=== PATIENT | female | born 1975 | race Caucasian/White ===

== ENCOUNTER → 2017-07-27 | Outpatient (CLI) | payer SELFPAY | LOC: LAB.O 10:51 | PROVIDERS: ATTEND Nurse Practitioner Family | DX: R11.2 Nausea with vomiting, unspecified (principal) ==

== ENCOUNTER → 2017-11-23 | Outpatient (CLI) | payer OTHER | LOC: LAB.O 11:22 | PROVIDERS: ATTEND Nurse Practitioner Family | DX: R07.89 Other chest pain (principal) ==

== ENCOUNTER 2020-04-04 23:31 | Observation (INO) | payer SELFPAY ==
[2020-04-04] MEDS ORDERED: ONDANSETRON INJ 4 MG/2 ML VIAL IV ONE (23:50)
--- NOTE | 2020-04-04 23:54 | ED.PDOC ---
History of Present Illness - General Stated Complaint: "Vertigo", N/V, right ear pressure Time Seen by Provider: 04/04/20 23:50 Source: patient Exam Limitations: no limitations - History of Present Illness Initial Comments: Pt says she's had mild pressure in her right ear for the past several day. She was seen in the clinic and was told to use flonase. Pt has h/o vertigo, but not this severe. Pt denies cough, sore throat, F/C. Pt denies GARCIA. Pt says she was lying down tonight when her vertigo suddenly worsened. Vertigo is definitely positional, increased when turning head and lying flat. Pt says she has slight left chest discomfort, but fairly sure it's related to vomiting. Timing/Duration: other - Past few days, worsened today Severity: moderate, severe Improving Factors: immobilization Worsening Factors: movement Associated Symptoms: nausea/vomiting Allergies/Adverse Reactions: Allergies Ondansetron [From Zofran] Allergy (Verified 11/17/12 07:11) IV form only Home Medications: Ambulatory Orders RX: Lisinopril 10 mg PO 04/05/20 Wellbutrin XL 50 mg 04/05/20 Zolpidem Tartrate [Ambien] 04/05/20 Review of Systems - Review of Systems Constitutional: Denies: chills, fever EENTM: States: no symptoms reported. Denies: double vision, ear pain, ear discharge, nose pain, nose congestion, throat pain, throat swelling, mouth pain, mouth swelling Cardiology: States: no symptoms reported, chest pain - minimal, left sided. Denies: edema, palpitations, syncope Gastrointestinal/Abdominal: States: nausea, vomiting. Denies: abdominal pain, constipation, diarrhea Genitourinary: States: no symptoms reported. Denies: dysuria, frequency, hematuria Musculoskeletal: States: no symptoms reported Skin: States: no symptoms reported Neurological: Denies: headache, numbness, paresthesia, seizure, tingling, weakness Family Medical History - Family History Mother Family History: No Known Physical Exam - Physical Exam General Appearance: Alert, Obvious distress - mild, Obese Eye Exam: bilateral abnormal EOM - nystagmus with rapid component to left, o/w nl bilateral eye exam ENT Exam: normal ENT inspection, TMs normal - no right sided erythema or bulging, pharynx normal Neck: non-tender, full range of motion, supple, normal inspection Respiratory: chest non-tender, lungs clear, normal breath sounds, no respiratory distress, no accessory muscle use Cardiovascular/Chest: normal peripheral pulses, regular rate, rhythm, no edema, no gallop Gastrointestinal/Abdominal: normal bowel sounds, non tender, no organomegaly, no pulsatile mass Mental Status: alert, oriented x 3 emergency services professional Exam: normal speech, PERRL Skin Exam: normal color, warm/dry Progress - Progress Progress: 04/05/20 00:37 Even after bolus of IVF's, zofran and ativan, pt still c/o severe dizziness and nausea. She says she can't even turn her head slightly. Pt says she does not feel like she can go home in this condition. Pt still denies GARCIA. Pt reports CP resolved. Laboratory Tests 04/04/20 04/04/20 04/04/20 00:00 00:00 00:00 WBC 7.1 RBC 4.74 Hgb 13.5 Hct 39.4 MCV 83.1 MCH 28.5 MCHC 34.3 RDW 13.4 Plt Count 297 MPV 8.5 Absolute Neuts (auto) 3.70 Absolute Lymphs (auto) 2.90 Absolute Monos (auto) 0.40 Absolute Eos (auto) 0.10 Absolute Basos (auto) 0.10 Neutrophils % 51.4 Lymphocytes % 40.3 Monocytes % 5.5 Eosinophils % 1.6 Basophils % 1.2 Sodium 137 Potassium 3.1 L Chloride 106 Carbon Dioxide 22 Anion Gap 12.1 BUN 14 Creatinine 0.83 BUN/Creatinine Ratio 16.9 Random Glucose 157 H Serum Osmolality 277.5 Calcium 9.2 Total Bilirubin 0.5 AST 14 ALT 12 Alkaline Phosphatase 58 Troponin I < 0.02 Serum Total Protein 6.9 Albumin 4.0 Globulin 2.9 Albumin/Globulin Ratio 1.4 04/05/20 00:53 D/w Sanjuana Mendez, will admit for obs. Departure - Departure Clinical Impression: Vertigo, Intractable nausea and vomiting, Dehydration, Chest pain, atypical, Hypokalemia Time of Disposition: 00:38 Disposition: Admit Patient Condition: Fair Referrals: Leticia May NP [Primary Care Provider] - 1-2 Weeks Home Medications: Ambulatory Orders RX: Lisinopril 10 mg PO 04/05/20 Wellbutrin XL 50 mg 04/05/20 Zolpidem Tartrate [Ambien] 04/05/20 Decision To Admit - Decistion To Admit Decision to Admit Reason: Medical Nature Decision to Admit Date: 04/05/20 Decision to Admit Time: 00:39
[2020-04-05] MEDS ORDERED: PROMETHAZINE HCL INJ 12.5 MG in SODIUM CHLORIDE 0.9% 50ML 50 ML IVPB ONE (00:31)
[2020-04-05] MEDS ORDERED: ACETAMINOPHEN 325 MG TAB PO PRN (03:00)
[2020-04-05] MEDS ORDERED: SODIUM CHLORIDE 0.9% (FLUSH) 10 ML SYG IV PRN (03:00)
[2020-04-05] MEDS ORDERED: ONDANSETRON INJ 4 MG/2 ML VIAL IV PRN (03:00)
[2020-04-05] MEDS ORDERED: IV SET AND CAP CHANGE INJ INJ SCH (03:00)
[2020-04-05] MEDS ORDERED: PROMETHAZINE HCL INJ 25 MG in SODIUM CHLORIDE 0.9% 50ML 50 ML IVPB PRN (03:05)
[2020-04-05] MEDS ORDERED: KCL 40 MEQ/D5 1/2NS 1,000 ML IVS ONE (03:15)
[2020-04-05] MEDS ORDERED: PANTOPRAZOLE INJECTION 40 MG in SODIUM CHLORIDE 0.9% 100ML 100 ML IVPB SCH (06:30)
[2020-04-05] MEDS ORDERED: PANTOPRAZOLE SODIUM IV 40 MG VIAL IV SCH (06:30)
[2020-04-05] MEDS ORDERED: SODIUM CHLORIDE 0.9% (FLUSH) 10 ML SYG IV SCH (09:00)
[2020-04-05] MEDS ORDERED: WELLBUTRIN PO SCH (09:00)
[2020-04-05] MEDS ORDERED: LISINOPRIL 10 MG TAB PO SCH (09:00)
[2020-04-05 10:06] VITALS: BP 100/66; TEMP 98.1; O2SAT 92
--- NOTE | 2020-04-05 10:28 | SSS ---
SUPERVISING PHYSICIAN: Jason Landa MD CHIEF COMPLAINT: Dizziness/vertigo. HISTORY OF PRESENT ILLNESS: This is a 45-year-old female who came to the Emergency Room with vomiting after having episodes of vertigo. She had been seen in the clinic and told to use Flonase, however, there was no improvement. She denies any other symptoms. She states it increased when turning her head and lying flat. In the Emergency Room, she was given some Ativan and promethazine initially without any improvement. She was then given a second dose and referred for observation. After the second dose and admission, the patient's symptoms improved. This morning, she is not having any issues. She is able to walk to the restroom without any difficulty this morning. PAST MEDICAL HISTORY: 1. Hypertension. 2. Depression. PAST SURGICAL HISTORY: 1. Tubal ligation. 2. Cholecystectomy. MEDICATIONS: 1. Lisinopril 10 mg daily. 2. Wellbutrin 50 mg p.o. daily. 3. Ambien 10 mg as needed. ALLERGIES: CI PIGMENT BLUE 63, DULOXETINE. FAMILY HISTORY: Reviewed and noncontributory. SOCIAL HISTORY: Nondrinker, nonsmoker, no illicit drugs. REVIEW OF SYSTEMS: Negative except as described in history of present illness. PHYSICAL EXAMINATION: VITAL SIGNS: Blood pressure 107/73, heart rate 80, respiratory rate 18, temperature 98.0, oxygen saturation 96%. GENERAL: Ms. Rodriguez is a 45-year-old female in no active distress currently. NEUROLOGIC: The patient is alert and oriented. LUNGS: Clear to auscultation bilaterally. CARDIOVASCULAR: Regular rate and rhythm. Normal S1, S2. ABDOMEN: Soft. Positive bowel sounds. GENITOURINARY: Deferred. EXTREMITIES: Lower extremities with no edema. LABORATORY: Normal white count, not left shift. Chemistry shows elevated glucose at 181, but otherwise normal. ASSESSMENT: 1. Symptomatic vertigo. 2. Hyperglycemia. 3. Hypertension. PLAN: The patient is asymptomatic after treatment. We will discharge her today. I will put her on a titrating dose of prednisone. I do recommend she continue the Flonase as well. Followup with primary care physician as an outpatient. #[id number] MTDD
== END 2020-04-05 12:40 | disposition home or self-care (01) ==
LOC: ER 23:31 → MS 04-05 01:31
PROVIDERS: ADMIT Nurse Practitioner Acute Care; ATTEND Nurse Practitioner
DX: H81.10 Benign paroxysmal vertigo, unspecified ear (principal); R73.9 Hyperglycemia, unspecified; I10 Essential (primary) hypertension; E86.0 Dehydration; E87.6 Hypokalemia; R07.89 Other chest pain; R00.1 Bradycardia, unspecified; F32.9 Major depressive disorder, single episode, unspecified; Z79.899 Other long term (current) drug therapy; Z88.8 Allergy status to other drugs, medicaments and biological substances; Z91.048 Other nonmedicinal substance allergy status
CPT/HCPCS: 96366; 96367; 96365; 96375; J2060 ×2; J2405; J2550; A4216 ×2; 80048; 80053; 36415; 85025; 83735; 84484; 99285; 93005; G0378